=== PATIENT | female | born 1985 | race Two or more races ===

== ENCOUNTER 2018-04-12 10:49 | Emergency (ER) | payer MEDICAID ==
[~2018-04-12] VITALS: Ht 157.5 cm; Wt 68.5 kg
[2018-04-12 11:00] VITALS: BP 128/91
--- NOTE | 2018-04-12 12:12 | Emergency Room Report ---
History of Present Illness General Chief Complaint: Skin Rash/Abscess Source: Patient Present Illness HPI patient is a 32-year-old female with significant history of allergic rhinitis here complaining of 2 days of her reticulocyte rash around her nasal septum and management. Denies history of HSV-1. Denies fever/chills/cough/SOB/throat pain /earache. Patient reports that every time she has mucus coming out of her nose a lot of skin irritation around her nasal septum and left since they are very pruritic patient continues to scratch and has some bleeding lesions. He has not taken any minute or any topical ointment.denies lesions inside the mouth Allergies: Coded Allergies: No Known Allergies (Unverified , 04/12/18) Patient History Limited by: language barrier Past Medical History: see triage record Past Surgical History: none Pertinent Family History: unable to obtain Last Menstrual Period: 03/29/18 Now: No Immunizations: UTD Reviewed Nursing Documentation: PMH: Agreed; PSxH: Agreed Nursing Documentation-PMH Past Medical History: No Stated History Review of Systems All Other Systems: negative except mentioned in HPI Physical Exam Vital Signs Date Time Temp Pulse Resp B/P (MAP) Pulse Ox O2 Delivery O2 Flow Rate FiO2 04/12/18 10:56 97.5 98 18 128/91 98 Room Air 97.5 Sp02 EP Interpretation: reviewed, normal General Appearance: normal inspection, well appearing, no apparent distress, alert Head: normocephalic, atraumatic Eyes: bilateral eye normal inspection, bilateral eye PERRL ENT: hearing grossly normal, normal pharynx, no angioedema, TMs + canals normal , uvula midline, other - dry lesions around nasal septum and bleeding macular lesions around mouth Neck: normal inspection, full range of motion, supple Respiratory: normal inspection, chest non-tender, lungs clear, normal breath sounds, no rhonchi Cardiovascular #1: normal inspection, normal peripheral pulses, regular rate, rhythm, no edema, no murmur Gastrointestinal: normal inspection, soft Rectal: deferred Genitourinary: deferred Musculoskeletal: normal inspection Neurologic: normal inspection, alert Psychiatric: normal inspection, judgement/insight normal Skin: palpation normal, well hydrated, rash - bleeding macules and eczema around nasal septum and mouth Lymphatic: normal inspection, no adenopathy Medical Decision Making PA Attestation all diagnoses and treatment plans are reviewed and discussed with my supervising physician Dr. Jackson Diagnostic Impression: Primary Impression: Eczema Additional Impressions: Eczema herpeticum Allergic rhinitis ER Course patient is a 32-year-old female with significant history of allergic rhinitis here complaining of 2 days of her reticulocyte rash around her nasal septum and management. Denies history of HSV-1. Denies fever/chills/cough/SOB/throat pain /earache. Patient reports that every time she has mucus coming out of her nose a lot of skin irritation around her nasal septum and left since they are very pruritic patient continues to scratch and has some bleeding lesions. He has not taken any minute or any topical ointment.denies lesions inside the mouth Ddx considered but are not limited to ezcema, ezcema herpaticum, allergic rhinitis,impetigo Vital signs: are WNL, pt. is afebrile H&PE are most consistent with ezcema herpatiform, impetigo, allergic rhinitis ORDERS: bactroban, acyclovir topical, loratadine ED INTERVENTIONS: None required at this time. DISCHARGE: At this time pt. is stable for d/c to home. Will provide printed patient care instructions, and any necessary prescriptions. Care plan and follow up instructions have been discussed with the patient prior to discharge. Last Vital Signs Date Time Temp Pulse Resp B/P (MAP) Pulse Ox O2 Delivery O2 Flow Rate FiO2 04/12/18 11:00 97.5 98 18 128/91 98 Room Air 97.5 Disposition: HOME, SELF-CARE Condition: Stable Scripts Loratadine (LORATADINE) 10 Mg Tab.rapdis 10 MG PO EVERY 12 HOURS, #30 TAB Prov: Sahelimoghavami,Nahal P.A. 04/12/18 Acyclovir (Acyclovir) 30 Gm Oint...g. 30 GM TP EVERY 12 HOURS for 14 Days, #1 TUBE Prov: Sahelimoghavami,Nahal P.A. 04/12/18 Mupirocin (BACTROBAN CR) 15 Gm Cream..g. 1 APPLIC TOPIC THREE TIMES A DAY for 10 Days, #1 % Prov: Sahelimoghavami,Nahal P.A. 04/12/18 Referrals: NOT CHOSEN [facility]/MD,REFERRING (PCP) Patient Instructions: Allergic Rhinitis, Eczema Additional Instructions: follow up with pcp regarding recurrent eczema and allergic rhinitis. return to ED if fever/chills Krish Staples Apr 12, 2018 12:12
[2018-04-12] MEDS ORDERED: BACTROBAN15 GM TOPIC (12:16)
[2018-04-12] MEDS ORDERED: LORATADINE10 M1 PO (12:16)
[2018-04-12] MEDS ORDERED: ACYCLOVIR30 GM TP (12:16)
[2018-04-12 12:30] VITALS: BP 117/79
== END 2018-04-12 12:31 | disposition home or self-care (01) ==
LOC: EMR 11:33
DX: L30.9 Dermatitis, unspecified (principal); B00.0 Eczema herpeticum; J30.9 Allergic rhinitis, unspecified
CPT/HCPCS: 99283